=== PATIENT | female | born 1990 | race Caucasian/White ===

== ENCOUNTER 2020-05-04 19:31 | Inpatient (IN) | payer BC ==
[~2020-05-04] VITALS: Ht 175.3 cm; Wt 106.2 kg
[2020-05-04 20:09] LABS: HCG UR SG 1.021 (1.003-1.030)
[2020-05-04 20:10] LABS: MICROSCOPIC INDICATED
--- NOTE | 2020-05-04 22:26 | NUR ---
pt resting on gurney, monitors applied, siderails up x2, call light within reach. awaiting lab and u/s results
[2020-05-04] MEDS ORDERED: FLUO10CA13 PO (22:28)
[2020-05-04] MEDS ORDERED: GABA-827 PO (22:28)
[2020-05-04] MEDS ORDERED: LAMO5TB.2 PO (22:28)
[2020-05-04 22:29] LABS: MEAN CORPUSCULAR HEMOGLOBIN 30.4 pg (27.0-34.8); MEAN CORPUSCULAR HGB CONC 33.4 g/dL (32.4-35.8); MEAN CORPUSCULAR VOLUME 91.1 fL (80-100); MEAN PLATELET VOLUME 7.8 fL (7.4-10.4); PLATELET COUNT 349 x10^3/uL (130-400); RED BLOOD COUNT 5.36 x10^6/uL (3.82-5.3); RED CELL DISTRIBUTION WIDTH 13.4 % (9.6-15.2)
[2020-05-04] MEDS ORDERED: OLAN2.5T3 PO (22:29)
[2020-05-04] MEDS ORDERED: ONDANSETRON 2MG/ML, 2ML IVPush ONE (22:30)
[2020-05-04] MEDS ORDERED: MORPHINE SULFATE 4 MG/ML, 1ML ONE ×2 (22:33→23:38)
[2020-05-04] MEDS ORDERED: ONDANSETRON 2MG/ML, 2ML ONE (22:34)
--- NOTE | 2020-05-04 22:39 | NUR ---
PT TO ULTRASOUND
[2020-05-04 22:42] LABS: ALANINE AMINOTRANSFERASE 33 U/L (12-78); ALBUMIN 4.4 g/dL (3.4-5.0); ANION GAP 8 mmol/L (5-15); CALCIUM 9.4 mg/dL (8.5-10.1); CHLORIDE 105 mmol/L (98-107)
[2020-05-04 22:44] LABS: ALKALINE PHOSPHATASE 76 U/L (45-117); BILIRUBIN,TOTAL 0.7 mg/dL (0.2-1.0); TOTAL PROTEIN 8.5 g/dL (6.4-8.2)
[2020-05-04] MEDS ORDERED: SODIUM CHLORIDE 0.9% 1,000ML IVBOLUS ONE (23:00)
[2020-05-04] MEDS: MORPHINE SULFATE 4 MG/ML, 1ML IVPush PRN ×2 (23:01→23:40)
--- NOTE | 2020-05-04 23:03 | NUR ---
PT MEDICATED PER MAR
[2020-05-04 23:13] LABS: BASOPHILS # (AUTO) 0.04 x10^3/uL (0-0.1); BASOPHILS % (AUTO) 0 % (0-1); EOSINOPHILS % (AUTO) 0 % (1-7); LYMPHOCYTES # (AUTO) 0.93 x10^3/uL (1-3.4); LYMPHOCYTES % (AUTO) 5 % (22-44); MD SCAN; MONOCYTES # (AUTO) 0.73 x10^3/uL (0.2-0.8); MONOCYTES % (AUTO) 4 % (2-9); NEUTROPHILS # (AUTO) 16.59 x10^3/uL (1.8-6.8); NEUTROPHILS % (AUTO) 91 % (42-75)
[2020-05-04] MEDS ORDERED: CEFOTETAN PMX 2GM/50ML 50 ML IV ONE (23:30)
[2020-05-04] MEDS ORDERED: SODIUM CHLORIDE 0.9% 1,000 ML IV ONE (23:32)
[2020-05-04] MEDS: SODIUM CHLORIDE 0.9% 1,000 ML IV SCH (23:40)
--- NOTE | 2020-05-04 23:40 | NUR ---
PT C/O CONTINUED RUQ ABD PAIN, PT MEDICATED PER MAR
[2020-05-05] MEDS ORDERED: ONDANSETRON 2MG/ML, 2ML IVPush PRN
[2020-05-05] MEDS ORDERED: MORPHINE SULFATE 4 MG/ML, 1ML IVPush PRN
[2020-05-05 00:15] VITALS: BP 124/80
[2020-05-05 00:23] VITALS: BP 124/80
[2020-05-05] MEDS: OLANZAPINE 5 MG TABLET PO SCH ×2 (01:18→20:49)
[2020-05-05] MEDS: LAMOTRIGINE 100 MG TABLET PO SCH ×3 (01:18→20:49)
[2020-05-05] MEDS: HYDROmorphone 2 MG/ML, 1ML IV PRN ×4 (01:20→09:10)
[2020-05-05] MEDS ORDERED: [UNRECOGNIZED DRUG - OTHER] MC SCH (02:30)
[2020-05-05] MEDS: ONDANSETRON 2MG/ML, 2ML IVPush PRN ×2 (05:10→09:10)
[2020-05-05 05:33] LABS: MEAN CORPUSCULAR HEMOGLOBIN 30.7 pg (27.0-34.8); MEAN CORPUSCULAR HGB CONC 33.8 g/dL (32.4-35.8); MEAN CORPUSCULAR VOLUME 90.8 fL (80-100); MEAN PLATELET VOLUME 7.9 fL (7.4-10.4); PLATELET COUNT 294 x10^3/uL (130-400); RED BLOOD COUNT 4.89 x10^6/uL (3.82-5.3); RED CELL DISTRIBUTION WIDTH 13.2 % (9.6-15.2)
[2020-05-05 05:41] LABS: ANION GAP 9 mmol/L (5-15); CALCIUM 8.6 mg/dL (8.5-10.1); CHLORIDE 109 mmol/L (98-107)
[2020-05-05 06:24] LABS: BASOPHILS # (AUTO) 0.02 x10^3/uL (0-0.1); BASOPHILS % (AUTO) 0 % (0-1); EOSINOPHILS % (AUTO) 0 % (1-7); LYMPHOCYTES # (AUTO) 1.01 x10^3/uL (1-3.4); LYMPHOCYTES % (AUTO) 6 % (22-44); MD SCAN; MONOCYTES # (AUTO) 1.56 x10^3/uL (0.2-0.8); MONOCYTES % (AUTO) 9 % (2-9); NEUTROPHILS # (AUTO) 15.61 x10^3/uL (1.8-6.8); NEUTROPHILS % (AUTO) 86 % (42-75)
[2020-05-05 07:23] VITALS: BP 115/71
[2020-05-05] MEDS: CEFOTETAN PMX 1GM/50ML 50 ML IV SCH (08:44)
[2020-05-05] MEDS: SODIUM CHLORIDE 0.9% 1,000 ML IV SCH (08:44)
[2020-05-05 10:47] VITALS: BP 121/76
[2020-05-05] MEDS ORDERED: MIDAZOLAM 1 MG/ML, 2ML ONE (11:48)
[2020-05-05] MEDS ORDERED: FENTANYL PF 250 MCG/5ML ONE (11:49)
[2020-05-05] MEDS ORDERED: CEFOTETAN PMX 2GM/50ML 50 ML ONE (11:50)
[2020-05-05] MEDS ORDERED: ONDANSETRON 2MG/ML, 2ML ONE (11:53)
[2020-05-05] MEDS ORDERED: PROPOFOL 10 MG/ML, 20ML ONE (11:53)
[2020-05-05] MEDS ORDERED: NEOSTIGMINE 1 MG/ML, 10ML ONE (11:53)
[2020-05-05] MEDS ORDERED: ROCURONIUM 10MG/ML,5ML ONE (11:53)
[2020-05-05] MEDS ORDERED: GLYCOPYRROLATE 0.2MG/1ML, 5ML ONE (11:53)
[2020-05-05] MEDS ORDERED: DEXAMETHASONE 4 MG/ML, 1ML ONE (11:53)
[2020-05-05] MEDS ORDERED: CEFAZOLIN 1,000 MG ONE (11:53)
[2020-05-05] MEDS ORDERED: BUPIVACAINE/PF-EPI 0.5% 1:200K ONE (12:02)
[2020-05-05] MEDS ORDERED: PROMETHAZINE 25 MG/ML, 1ML IVPush PRN (12:30)
[2020-05-05] MEDS ORDERED: HALOPERIDOL 5 MG/ML IV PRN (12:30)
[2020-05-05] MEDS ORDERED: OXYcodone 5 MG/5 ML ORAL.SOL UDC PO PRN (12:30)
[2020-05-05] MEDS ORDERED: ACETAMINOPHEN 325 MG TABLET PO PRN ×2 (12:30)
[2020-05-05] MEDS ORDERED: FENTANYL PF 100 MCG/2ML IV PRN (12:30)
[2020-05-05] MEDS ORDERED: MEPERIDINE/PF 25MG/0.5ML IVPush PRN (12:30)
[2020-05-05] MEDS ORDERED: HYDROmorphone 1 MG/ML, 1ML INJ IVPush PRN (12:30)
[2020-05-05] MEDS ORDERED: morphine SULFATE 10 MG/ML, 1ML IVPush PRN ×2 (12:30)
[2020-05-05] MEDS ORDERED: BUPIVACAINE/PF-EPI 0.5% 1:200K INFIL ONE (12:55)
[2020-05-05] MEDS ORDERED: KETOROLAC 30 MG/1 ML ONE (12:58)
[2020-05-05] MEDS ORDERED: FENTANYL PF 100 MCG/2ML ONE ×4 (13:09→13:42)
[2020-05-05] MEDS ORDERED: OXYcodone 5 MG/5 ML ORAL.SOL UDC ONE (13:43)
[2020-05-05] MEDS ORDERED: ONDANSETRON 2MG/ML, 2ML IV PRN (15:30)
[2020-05-05] MEDS ORDERED: MORPHINE SULFATE 4 MG/ML, 1ML IV PRN (15:30)
[2020-05-05] MEDS ORDERED: LACTATED RINGERS 1,000 ML IV SCH (15:30)
[2020-05-05] MEDS: SODIUM CHLORIDE FLUSH 10ML SYR IVF SCH (17:34)
[2020-05-05] MEDS: OXYcodone/APAP 5/325MG TABLET PO PRN ×2 (19:24→20:49)
[2020-05-05 19:44] VITALS: BP 98/62
[2020-05-06] MEDS: OXYcodone/APAP 5/325MG TABLET PO PRN ×2 (01:27→08:34)
[2020-05-06 02:07] VITALS: BP 95/55
[2020-05-06 03:43] VITALS: BP_SYST 85; BP_SYST 97; BP_DIAS 50; BP_DIAS 61
[2020-05-06 07:43] VITALS: BP 94/58
[2020-05-06] MEDS: LAMOTRIGINE 100 MG TABLET PO SCH (08:34)
[2020-05-06] MEDS: CEFOTETAN PMX 1GM/50ML 50 ML IV SCH (08:56)
[2020-05-06] MEDS: SODIUM CHLORIDE FLUSH 10ML SYR IVF SCH (08:58)
[2020-05-06] MEDS ORDERED: GABAPENTIN 300 MG CAPSULE PO SCH (09:00)
[2020-05-06] MEDS ORDERED: FLUOXETINE HCL 20 MG CAPSULE PO SCH (09:00)
[2020-05-06] MEDS ORDERED: MAGNESIUM HYDROXIDE 8%, 30ML UDC PO PRN (09:30)
[2020-05-06] MEDS ORDERED: SENNA/DOCUSATE TABLET PO PRN (09:30)
[2020-05-06] MEDS ORDERED: OXYC-302 PO (09:50)
[2020-05-06] MEDS ORDERED: ONDA4TAB7 PO (09:50)
== END 2020-05-06 11:15 | disposition home or self-care (01) | DRG 419 ==
LOC: ED 22:26 → EDIP 23:56 → 4NE 05-05 00:13 → DCLOUNGE 05-06 11:05
PROVIDERS: ADMIT Internal Medicine; ATTEND Family Medicine
PROC: 0FT44ZZ Resection of Gallbladder, Percutaneous Endoscopic Approach (ICD-10-PCS; principal; 2020-05-05 12:30)
DX: K80.00 Calculus of gallbladder with acute cholecystitis without obstruction (principal); K80.10 Calculus of gallbladder with chronic cholecystitis without obstruction; F31.9 Bipolar disorder, unspecified; Z79.899 Other long term (current) drug therapy
CPT/HCPCS: 36415; 76700; 80048; 80053; 81001; 81025; 83690; 85025; 87086; 87635; 88304; 93005; 96361; 96365; 96375; 96376; G0378; J0690; J1100; J1170; J1885; J2250; J2405; J2704; J2710; J3010; J2270; J3490; J7030